=== PATIENT | male | born 1950 | race Asian ===

== ENCOUNTER 2022-03-14 08:03 | Inpatient (IN) | payer MEDICARE, OTHER ==
[~2022-03-14] VITALS: Ht 157.5 cm; Wt 63.1 kg
[2022-03-14] MEDS ORDERED: METF-1211 PO (08:24)
[2022-03-14] MEDS ORDERED: OXYB5TAB20 PO (08:24)
[2022-03-14] MEDS ORDERED: TOLT2TAB2 PO (08:24)
[2022-03-14] MEDS ORDERED: TAMS-13 PO (08:24)
[2022-03-14 08:38] LABS: BASOPHILS % (AUTO) 0.4 % (0.0-2.0); EOSINOPHILS % (AUTO) 4.2 % (1.0-6.0); HEMATOCRIT 42.9 % (41-53); HEMOGLOBIN 13.8 g/dL (13.5-17.5); LYMPHOCYTES # (AUTO) 2.3 K/uL (1.0-4.8); LYMPHOCYTES % (AUTO) 28.2 % (22.0-44.0); MEAN CORPUSCULAR HEMOGLOBIN 22.1 pg (26.0-34.0); MEAN CORPUSCULAR HGB CONC 32.1 G/dL (31.0-37.0); MEAN CORPUSCULAR VOLUME 69 fL (80-100); MONOCYTES # (AUTO) 1.1 K/uL (0.1-1.0); MONOCYTES % (AUTO) 13.2 % (2.0-9.0); NEUTROPHILS # (AUTO) 4.5 K/uL (1.8-7.7); PLATELET COUNT (AUTO) 211 K/uL (150-450); RED BLOOD CELL COUNT(AUTO) 6.23 MIL/uL (4.50-5.90); RED CELL DISTRIBUTION WIDTH 16.9 % (11.5-14.5)
[2022-03-14 08:49] LABS: ANION GAP 7 mmol/L (8-16); CALCIUM, TOTAL 8.7 mg/dL (8.8-10.5); CARBON DIOXIDE 27 mmol/L (22-29); CHLORIDE 103 mmol/L (98-107); CREATININE 0.88 mg/dL (0.60-1.30); GLOMERULAR FILTR. RATE CALC > 60 mL/min (>60); GLUCOSE,RANDOM 147 mg/dL (70-110); SODIUM SERUM 137 mmol/L (136-145); UREA NITROGEN, BLOOD 18 mg/dL (7-18)
[2022-03-14 08:55] LABS: ALANINE AMINOTRANSFERASE 47 U/L (12-78); ALBUMIN 3.5 g/dL (3.4-5.0); ALKALINE PHOSPHATASE 90 U/L (46-116); ASPARTATE AMINOTRANSFERASE 27 U/L (15-37); BILIRUBIN,TOTAL 0.5 mg/dL (0.1-1.0)
[2022-03-14 08:57] LABS: PROTHROMBIN TIME 10.4 SEC (9.4-11.6)
[2022-03-14 09:03] LABS: B-TYPE NATRIURETIC PEPTIDE 85 pg/mL (0-100)
[2022-03-14 09:22] LABS: COVID AG,FIA SOURCE NASOPHARYNGEAL
[2022-03-14] MEDS: ASPIRIN 81 MG CHEWABLE TABLET PO SCH (09:42)
[2022-03-14] MEDS: AmLODIPine BESYLATE 5 MG TABLET PO SCH (09:42)
[2022-03-14] MEDS: ATORVASTATIN CALCIUM 40 MG TABLET PO SCH (09:42)
[2022-03-14] MEDS ORDERED: INSULIN LISPRO 100 UNITS/ML SQ PRN ×2 (09:45)
[2022-03-14] MEDS ORDERED: ACETAMINOPHEN 325 MG TABLET PO PRN (09:45)
[2022-03-14] MEDS ORDERED: DEXTROSE 50%-WATER 25 GM/50 ML SYRINGE IVP PRN ×2 (09:45)
[2022-03-14 14:47] LABS: APPEARANCE,URINE CLEAR (CLEAR); BILIRUBIN,URINE NEGATIVE (NEGATIVE); GLUCOSE, URINE (UA) NEGATIVE (NEGATIVE); KETONES,URINE NEGATIVE (NEGATIVE); LEUKOCYTE ESTERASE ,URINE NEGATIVE (NEGATIVE); NITRATE,URINE NEGATIVE (NEGATIVE); OCCULT BLOOD,URINE NEGATIVE (NEGATIVE); PROTEIN,URINE 100-200,SEE CONFIRM mg/dL (NEGATIVE); SPECIFIC GRAVITIY, URINE 1.012 (1.003-1.030); UROBILINOGEN,URINE <=1.0 mg/dL (<=1.0)
[2022-03-14 14:53] LABS: AMPHET/METH SCREEN,URINE NEGATIVE (NEGATIVE); BARBITURATE SCREEN, URINE NEGATIVE (NEGATIVE); BENZODIAZEPINES SCREEN,URINE NEGATIVE (NEGATIVE); CANNABINOID SCREEN,URINE NEGATIVE (NEGATIVE); COCAINE SCREEN,URINE NEGATIVE (NEGATIVE); METHADONE SCREEN, URINE NEGATIVE (NEGATIVE); OPIATE SCREEN,URINE NEGATIVE (NEGATIVE)
[2022-03-14 14:58] LABS: PHENCYCLIDINE SCREEN,URINE NEGATIVE (NEGATIVE)
[2022-03-14] MEDS: HEPARIN SODIUM,PORCINE 5,000 UNITS/ML VIAL SQ SCH (15:07)
[2022-03-14 15:11] LABS: BACTERIA,URINE None Seen /HPF (None Seen); RBC,URINE 0-2 /HPF (0-2); SQUAMOUS EPITHELIAL CELL,UR Rare /LPF (None Seen); SULFOSALICYLIC ACID,URINE 2+ (Negative); WBC,URINE 0-2 /HPF (0-5)
[2022-03-14] MEDS: DOCUSATE SODIUM 100 MG CAPSULE PO SCH (21:00)
[2022-03-14 22:50] VITALS: BP 158/100
[2022-03-15] MEDS: HEPARIN SODIUM,PORCINE 5,000 UNITS/ML VIAL SQ SCH ×2 (00:20→08:48)
[2022-03-15 00:30] VITALS: BP 160/91
[2022-03-15 04:59] VITALS: BP 156/84
[2022-03-15 07:35] VITALS: BP 143/86
[2022-03-15] MEDS: AmLODIPine BESYLATE 5 MG TABLET PO SCH (08:48)
[2022-03-15] MEDS: ATORVASTATIN CALCIUM 40 MG TABLET PO SCH (08:48)
[2022-03-15] MEDS: ASPIRIN 81 MG CHEWABLE TABLET PO SCH (08:48)
[2022-03-15] MEDS: DOCUSATE SODIUM 100 MG CAPSULE PO SCH (08:49)
[2022-03-15] MEDS ORDERED: FAMOTIDINE 20 MG TABLET PO SCH (09:00)
[2022-03-15 11:52] VITALS: BP 126/82
[2022-03-15] MEDS ORDERED: AMLO5TAB66 PO (12:09)
[2022-03-15] MEDS ORDERED: ATOR40TA28 PO (12:09)
[2022-03-15] MEDS ORDERED: ASPI81TA87 PO (12:10)
[2022-03-15 12:16] LABS: GLUCOMETER DEV NAME(LOC) 5S.2B; GLUCOSE,POINT OF CARE 129 MG/DL (70-110)
[2022-03-15 18:36] LABS: GLUCOMETER DEV NAME(LOC) 5N.1C; GLUCOSE,POINT OF CARE 135 MG/DL (70-110)
[2022-03-15 18:36] LABS: GLUCOMETER DEV NAME(LOC) 5N.1C; GLUCOSE,POINT OF CARE 171 MG/DL (70-110)
== END 2022-03-15 13:50 | disposition home or self-care (01) | DRG 69 ==
LOC: EMS 08:07 → 5S 20:19
PROVIDERS: ADMIT Internal Medicine; ATTEND Internal Medicine
DX: G45.9 Transient cerebral ischemic attack, unspecified (principal); Z20.822 Contact with and (suspected) exposure to COVID-19; E11.9 Type 2 diabetes mellitus without complications; E78.00 Pure hypercholesterolemia, unspecified; I10 Essential (primary) hypertension; N40.0 Benign prostatic hyperplasia without lower urinary tract symptoms; F17.210 Nicotine dependence, cigarettes, uncomplicated
CPT/HCPCS: 70551; 71045; 80053; 80061; 81001; 81002; 82948; 82962; 83880; 84484; 85025; 85610; 85730; 86850; 86900; 86901; 92507; 92610; 93005; 93306; 99291; J1644; 36415-L1; 36415-TC; 70450; 70450-TC

== ENCOUNTER 2024-04-28 21:17 | Emergency (ER) | payer MEDICARE, OTHER ==
[~2024-04-28] VITALS: Ht 162.6 cm; Wt 62.0 kg
[~2024-04-28 21:17] MED LIST: AMLO5TAB66 PO; ASPI81TA87 PO; ATOR40TA28 PO; METF-1211 PO; TAMS0.4C94 PO
[2024-04-28 21:26] VITALS: BP 161/95; PULSE 111; RESP 20; TEMP 97.4
== END 2024-04-29 00:20 | disposition left against medical advice (07) ==
LOC: EMS 21:17
DX: R10.9 Unspecified abdominal pain (principal); Z53.21 Procedure and treatment not carried out due to patient leaving prior to being seen by health care provider